=== PATIENT | male | born 1965 | race Hispanic/Latino ===

== ENCOUNTER 2018-05-04 05:50 | Day surgery (SDC) | payer OTHER ==
[2018-05-03 15:59] LABS: BASOPHILS % (AUTO) 0.9 % (0.0-5.0); EOSINOPHILS % (AUTO) 2.6 % (0.0-8.0); HEMATOCRIT 41.9 % (42-54); LYMPHOCYTES % (AUTO) 26.5 % (21.0-51.0); MEAN CORPUSCULAR HEMOGLOBIN 27.1 pg (27.0-33.0); MEAN CORPUSCULAR HGB CONC 32.6 g/dL (32.0-36.0); MEAN CORPUSCULAR VOLUME 83.1 fL (79-99); MONOCYTES % (AUTO) 9.2 % (3.0-13.0); NEUTROPHILS % (AUTO) 60.8 % (40.0-77.0); NUCLEATED RED BLOOD CELLS 0.1 % (0.0-0.19); PLATELET COUNT (AUTO) 306 K/uL (130-400); RED BLOOD CELL COUNT(AUTO) 5.04 MIL/uL (4.50-6.20); WHITE BLOOD COUNT (AUTO) 8.2 K/uL (4.8-10.8)
[2018-05-03 16:04] VITALS: BP 151/86
[2018-05-03 16:22] LABS: CREATININE 1.1 mg/dL (0.5-1.5); POTASSIUM 4.4 mmol/L (3.5-5.1)
[~2018-05-04] VITALS: Ht 190.5 cm; Wt 124.1 kg
[2018-05-04] VITALS (14 sets, daily range): BP systolic 116–149; BP diastolic 79–98
[~2018-05-04 05:50] MED LIST: ACET-66 PO; AMIT10TA6 PO; AMLO10TA7 PO; ASPI-555 PO; ATOR40TA69 PO; BUPR100T13 PO; BUSP10TA3 PO; LOSA100T58 PO; PARO30TA60 PO; PRAZ5CAP2 PO; TRAM50TA4 PO
[2018-05-04] MEDS ORDERED: CEFAZOLIN 3GM /D5W 100ML 100 ML IV SCH (06:00)
[2018-05-04] MEDS ORDERED: LACTATED RINGERS 1000ML 1,000 ML IV ONE (08:31)
[2018-05-04] MEDS: CEFAZOLIN SODIUM 1 GM VIAL ONE ×2 (08:46→09:55)
[2018-05-04] MEDS ORDERED: MIDAZOLAM HCL 1 MG/ML 2ML VIAL ONE (09:21)
[2018-05-04] MEDS ORDERED: PROPOFOL 10 MG/ML 20ML VIAL IV ONE (09:22)
[2018-05-04] MEDS ORDERED: FENTANYL CITRATE PF 50 MCG/1 ML 2ML VIAL ONE ×2 (09:22→10:09)
[2018-05-04] MEDS ORDERED: GLYCOPYRROLATE 1 MG/5 ML SYRINGE ONE (09:53)
[2018-05-04] MEDS ORDERED: EPHEDRINE SULFATE 50 MG/ML AMPULE ONE (09:58)
[2018-05-04] MEDS ORDERED: TYL3 PO (10:51)
[2018-05-04] MEDS ORDERED: CEPH500B PO (10:51)
--- NOTE | 2018-05-04 12:15 | NUR ---
ASSESSMENT RECEIVED PT FROM PACU STAFF Coral GREWAL RN. PT [id number]. DRSG TO RIGHT KNEE DRY AND INTACT. BROTHER AT BEDSIDE.
--- NOTE | 2018-05-04 12:40 | NUR ---
DISCHARGE ORAL AND WRITTEN DISCHARGE INSTRUCTIONS GIVEN TO PT AND PTS BROTHER. PRESCRIPTION GIVEN TO BROTHER ALONG WITH CRUTCHES. NO OTHER QUESTIONS AT THIS TIME.
== END 2018-05-04 12:50 | disposition home or self-care (01) ==
LOC: DAH 05:50
PROVIDERS: ATTEND Orthopaedic Surgery
DX: M23.222 Derangement of posterior horn of medial meniscus due to old tear or injury, left knee (principal); M22.42 Chondromalacia patellae, left knee; Z68.36 Body mass index [BMI] 36.0-36.9, adult; F41.9 Anxiety disorder, unspecified; I10 Essential (primary) hypertension; E78.5 Hyperlipidemia, unspecified; M54.5 Low back pain; G47.33 Obstructive sleep apnea (adult) (pediatric); F32.9 Major depressive disorder, single episode, unspecified; F43.10 Post-traumatic stress disorder, unspecified; H11.009 Unspecified pterygium of unspecified eye; Z98.890 Other specified postprocedural states; Z80.9 Family history of malignant neoplasm, unspecified; Z82.49 Family history of ischemic heart disease and other diseases of the circulatory system; Z88.8 Allergy status to other drugs, medicaments and biological substances
CPT/HCPCS: 29881; 36415; 80048; 85025; A4218; A4606; A4649 ×2; A4930; A6223; J0690; J2250; J2704; J3010 ×2; J3490 ×2; J7120 ×2

== ENCOUNTER 2019-12-18 05:45 | Day surgery (SDC) | payer OTHER ==
[2019-12-11 10:44] LABS: BASOPHILS % (AUTO) 0.9 % (0.0-5.0); EOSINOPHILS % (AUTO) 3.2 % (0.0-8.0); HEMATOCRIT 43.7 % (42-54); LYMPHOCYTES % (AUTO) 22.5 % (21.0-51.0); MEAN CORPUSCULAR HEMOGLOBIN 27.6 pg (27.0-33.0); MEAN CORPUSCULAR VOLUME 83.7 fL (79-99); MONOCYTES % (AUTO) 9.7 % (3.0-13.0); NEUTROPHILS % (AUTO) 62.9 % (40.0-77.0); PLATELET COUNT (AUTO) 320 K/uL (130-400); RED BLOOD CELL COUNT(AUTO) 5.22 MIL/uL (4.50-6.20); RED CELL DISTRIBUTION WIDTH 14.3 % (11.0-15.5); WHITE BLOOD COUNT (AUTO) 7.6 K/uL (4.8-10.8)
[2019-12-11 10:55] LABS: CREATININE 1.1 mg/dL (0.5-1.5); POTASSIUM 4.2 mmol/L (3.5-5.1)
[2019-12-17 10:06] VITALS: BP 145/75
[2019-12-18] VITALS (15 sets, daily range): BP systolic 108–149; BP diastolic 57–86
[~2019-12-18] VITALS: Ht 189.2 cm; Wt 129.1 kg
[~2019-12-18 05:45] MED LIST changes: -ASPI-555 PO; +ASPI-556 PO; +CARB-283 OP; +KETO5DRO6 OP; +LIDOP TP; +[UNRECOGNIZED DRUG - CODE] PO
[2019-12-18] MEDS: CEFAZOLIN 3GM /D5W 100ML 100 ML IV SCH ×2 (06:00→08:38)
[2019-12-18] MEDS ORDERED: LACTATED RINGERS 1000ML 1,000 ML IV ONE (06:57)
[2019-12-18] MEDS ORDERED: CEFAZOLIN SODIUM 1 GM VIAL ONE (06:58)
[2019-12-18] MEDS ORDERED: LIDOCAINE PF 2% 5ML ABBOJECT ONE (07:59)
[2019-12-18] MEDS ORDERED: DEXAMETHASONE SOD PHOSPHATE 10MG/ML 1ML VIAL ONE (07:59)
[2019-12-18] MEDS ORDERED: MIDAZOLAM HCL 1 MG/ML 2ML VIAL ONE (07:59)
[2019-12-18] MEDS ORDERED: SUCCINYLCHOLINE CHLORIDE 20 MG/ML 10 ML VIAL ONE (07:59)
[2019-12-18] MEDS ORDERED: NEOSTIGMINE 5MG/5ML SYR IV ONE (08:00)
[2019-12-18] MEDS ORDERED: GLYCOPYRROLATE 1 MG/5 ML SYRINGE ONE (08:00)
[2019-12-18] MEDS ORDERED: ROCURONIUM 10MG/1ML SYR 10 MG/ML ML ONE (08:00)
[2019-12-18] MEDS ORDERED: PROPOFOL 10 MG/ML 20ML VIAL IV ONE (08:00)
[2019-12-18] MEDS ORDERED: FENTANYL CITRATE PF 50 MCG/1 ML 2ML VIAL ONE ×2 (08:00→08:50)
[2019-12-18] MEDS ORDERED: ONDANSETRON HCL 4 MG/2 ML VIAL ONE (08:00)
[2019-12-18] MEDS ORDERED: EPHEDRINE SULFATE 50 MG/ML AMPULE ONE (08:32)
[2019-12-18] MEDS ORDERED: PHENYLEPHRINE HCL 10 MG/ML 1ML VIAL IV ONE (08:42)
[2019-12-18] MEDS ORDERED: KETOROLAC TROMETHAMINE 30MG/ML ONE (09:17)
[2019-12-18] MEDS ORDERED: CEPH500B PO (09:20)
[2019-12-18] MEDS ORDERED: ACET1TAB25 PO (09:20)
[2019-12-18] MEDS ORDERED: MEPERIDINE-PF 25 MG/ML SYG ONE (10:04)
== END 2019-12-18 11:05 | disposition home or self-care (01) ==
LOC: DAH 05:45
PROVIDERS: ATTEND Orthopaedic Surgery
DX: S83.231A Complex tear of medial meniscus, current injury, right knee, initial encounter (principal); Z20.828 Contact with and (suspected) exposure to other viral communicable diseases; M25.761 Osteophyte, right knee; M22.41 Chondromalacia patellae, right knee; I10 Essential (primary) hypertension; E78.5 Hyperlipidemia, unspecified; F32.9 Major depressive disorder, single episode, unspecified; F41.9 Anxiety disorder, unspecified; M17.12 Unilateral primary osteoarthritis, left knee; G47.33 Obstructive sleep apnea (adult) (pediatric); Z87.891 Personal history of nicotine dependence; Z82.49 Family history of ischemic heart disease and other diseases of the circulatory system; Z80.9 Family history of malignant neoplasm, unspecified; Z98.1 Arthrodesis status; Z88.8 Allergy status to other drugs, medicaments and biological substances; Z79.899 Other long term (current) drug therapy; Z98.890 Other specified postprocedural states; X50.1XXA Overexertion from prolonged static or awkward postures, initial encounter; Y93.89 Activity, other specified; Y92.89 Other specified places as the place of occurrence of the external cause
CPT/HCPCS: 29881; 36415; 80048; 85025; A4213; A4215; A4221; A4222; A4223; A4606; A4649 ×2; A4663; A4930; A6223; C9803; J0330; J0690; J1100; J1885; J2001; J2175; J2250; J2370; J2405; J2704; J2710; J3010 ×2; J3490 ×2; J7120 ×2; U0003